=== PATIENT | female | born 1975 | race American Indian/Alaskan Native ===

== ENCOUNTER 2020-03-25 09:17 | Emergency (ER) | payer MEDICAID ==
--- NOTE | 2020-03-25 09:51 | XRay Report ---
LEFT WRIST 2 VIEW(S) INDICATION / CLINICAL INFORMATION: injury/pain COMPARISON: None available. FINDINGS: BONES / JOINT(S): No acute fracture or subluxation. No significant arthritis. SOFT TISSUES: No significant abnormality. ADDITIONAL FINDINGS: None. Signer Name: Darwin Wei MD Signed: 03/25/2020 9:46 AM Workstation Name: [id number]
[2020-03-25] MEDS ORDERED: HYDROcodone/ACETAMINOPHEN 5-325 MG TAB PO STA (13:20)
--- NOTE | 2020-03-25 13:20 | Emergency Department Report ---
Upper Extremity - HPI Chief Complaint: Extremity Injury, Upper Stated Complaint: LEFT WRIST INJURY Time Seen by Provider: 03/25/20 13:09 Upper Extremity: Left Wrist Occurred When: 2 Days Mechanism: Other (45-year-old female was at home throwing a very heavy weighted blanket off to the side which resulted in a burning type pain to the left wrist which was followed by swelling and decreased range of motion secondary to pain. Presents emergency department seeking further evaluation) Severity: mild, moderate Symptoms: Yes Pain with Movement, Yes Limited Range of Movement, No Deformity, No Bruising/Ecchymosis, No Laceration or Abrasion ED Review of Systems ROS: Stated complaint: LEFT WRIST INJURY Other details as noted in HPI Comment: All other systems reviewed and negative ED Past Medical Hx - Past Medical History Previous Medical History?: No - Surgical History Past Surgical History?: No - Medications Home Medications: Home Medications Medication Instructions Recorded Confirmed Last Taken Type Ketorolac [Toradol] 10 mg PO Q8HR PRN #14 tablet 03/25/20 Unknown Rx Upper Extremity Exam - Exam General: Vital signs noted. No distress. Alert and acting appropriately. Head and Torso: No HEENT Abnormality, No Neck Tenderness, No Chest/Lungs Abnormality, No Abdominal Tenderness, No Back Tenderness Shoulder Exam: Yes Normal Range of Motion in Shoulder, No Shoulder Tenderness, No Clavicle Tenderness, No Shoulder Deformity, No AC Joint Tenderness Arm Exam: No Arm/Humerus Tenderness, No Arm Deformity Elbow: No Elbow Tenderness, No Normal Range of Motion in Elbow, No Elbow Deformity Forearm: No Forearm Tenderness, No Forearm Deformity, No Pain with Pronation, No Pain with Supination Wrist: Yes Wrist Tenderness (No tenderness to the radial aspect of the wrist and pain with flexion of the thumb. No fovea sign. 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), Yes Normal ROM in Wrist, No Wrist Deformity, No Snuffbox Tenderness, No Pain with Axial Thumb Compression Hand: Yes Normal ROM in Digit(s), No Hand Tenderness, No Hand Deformity, No Digit Tenderness, No Digit(s) Deformity, No Tendon Dysfunction CMS Exam: No Broken Skin, No Normal Distal Pulses, No Normal Capillary Refill, No Normal Distal Sensation ED Medical Decision Making - Radiology Data Radiology results: report reviewed [facility], [place] [address] [place] [address] XRay Report Signed Patient: AMY TORRES MR#: [id number] 4 : 1975 Acct:[id number] Age/Sex: 45 / F ADM Date: 03/25/20 Loc: ED Attending Dr: Ordering Physician: VENESSA DOMINGO MD Date of Service: 03/25/20 Procedure(s): XR wrist 2V LT Accession Number(s): [id number] cc: VENESSA DOMINGO MD Fluoro Time In Minutes: LEFT WRIST 2 VIEW(S) INDICATION / CLINICAL INFORMATION: injury/pain COMPARISON: None available. FINDINGS: BONES / JOINT(S): No acute fracture or subluxation. No significant arthritis. SOFT TISSUES: No significant abnormality. ADDITIONAL FINDINGS: None. Signer Name: Darwin Wei MD Signed: 03/25/2020 9:46 AM Workstation Name: [id number] Transcribed By: Dictated By: DARWIN WEI III Electronically Authenticated By: DARWIN WEI III Signed Date/Time: 03/25/20945 DD/ 5 TD/TT: - Medical Decision Making [facility], [place] [address] [place] [address] XRay Report Signed Patient: AMY TORRES MR#: [id number] 4 : 1975 Acct:[id number] Age/Sex: 45 / F ADM Date: 03/25/20 Loc: ED Attending Dr: Ordering Physician: VENESSA DOMINGO MD Date of Service: 03/25/20 Procedure(s): XR wrist 2V LT Accession Number(s): [id number] cc: VENESSA DOMINGO MD Fluoro Time In Minutes: LEFT WRIST 2 VIEW(S) INDICATION / CLINICAL INFORMATION: injury/pain COMPARISON: None available. FINDINGS: BONES / JOINT(S): No acute fracture or subluxation. No significant arthritis. SOFT TISSUES: No significant abnormality. ADDITIONAL FINDINGS: None. Signer Name: Darwin Wei MD Signed: 03/25/2020 9:46 AM Workstation Name: [id number] Transcribed By: Dictated By: DARWIN WEI III Electronically Authenticated By: DARWIN WEI III Signed Date/Time: 03/25/20945 DD/ 5 TD/TT: 45-year-old F [place] female status post wrist injury due to a throwing motion x-ray shows no acute spacing issues no bony abnormality. Most consistent with a sprain strain type of mechanism joint is stable plan is to ice and splint and have her follow-up with orthopedic for definitive management. No evidence of any infectious process or neurological/neurovascular complication Critical care attestation.: If time is entered above; I have spent that time in minutes in the direct care of this critically ill patient, excluding procedure time. ED Disposition Clinical Impression: Wrist sprain Disposition: TO HOME OR SELFCARE Is pt being admited?: No Does the pt Need Aspirin: No Condition: Stable Instructions: Wrist Injury (ED), Wrist Sprain (ED), Ice Pack Application (ED), RICE Therapy (ED) Additional Instructions: Please wear splint for comfort and follow-up with orthopedic for definitive splint necessity duration Prescriptions: Ketorolac [Toradol] 10 mg PO Q8HR PRN #14 tablet PRN Reason: Pain Referrals: PRIMARY CAREMD [Primary Care Provider] - 3-5 Days [facility] [Provider Group] - 3-5 Days DARWIN REYES MD [Staff Physician] - 3-5 Days
== END 2020-03-25 14:13 | disposition home or self-care (01) ==
LOC: ED 09:17
DX: S63.502A Unspecified sprain of left wrist, initial encounter (principal); Z79.899 Other long term (current) drug therapy; X50.0XXA Overexertion from strenuous movement or load, initial encounter; Y93.89 Activity, other specified; Y92.89 Other specified places as the place of occurrence of the external cause; Y99.8 Other external cause status